=== PATIENT | female | born 1975 ===

== ENCOUNTER 2018-09-19 12:41 | Emergency (ER) | payer OTHER ==
[2018-09-19 13:50] VITALS: RESP 18; TEMP 98.4; BMI 22.6
--- NOTE | 2018-09-19 15:45 | ED PDOC ---
Arrival/HPI - General Chief Complaint: Upper Extremity Problem/Injury Time Seen by Provider: 09/19/18 14:41 Historian: Patient - History of Present Illness Narrative History of Present Illness (Text): 09/19/18 15:15 42 year old female, with no significant past medical history, presents to the Emergency department complaining of right wrist and right shoulder discomfort radiating to her right neck for past year. Patient informs a sharp burning sensation to the area but denies any injury or trauma. Patient denies any other associated somatic complaints. Patient denies any generalized weakness, fevers, chills, headache, dizziness, chest pain, shortness of breath, dyspnea on exertion, cough, abdominal pain, nausea, vomiting, diarrhea, back pain, or any other complaints. PMD Myers Time/Duration: Other (1 year ) Symptom Onset: Gradual Symptom Course: Unchanged Quality: Burning Activities at Onset: Light Context: Home Past Medical History - Provider Review Nursing Documentation Reviewed: Yes - Past History Past History: No Previous - Infectious Disease Hx of Infectious Diseases: None - Tetanus Immunization Tetanus Immunization: Unknown - Reproductive Menopause: No - Psychiatric Hx Depression: No Hx Emotional Abuse: No Hx Physical Abuse: No Hx Substance Use: No - Surgical History Hx Section: Yes - Suicidal Assessment Feels Threatened In Home Enviroment: No Family/Social History - Physician Review Nursing Documentation Reviewed: Yes Family/Social History: Unknown Family HX Hx Alcohol Use: No Hx Substance Use: No Hx Substance Use Treatment: No Allergies/Home Meds Allergies/Adverse Reactions: Allergies No Known Allergies Allergy (Verified 08/09/13 18:46) Review of Systems - Physician Review All systems were reviewed & negative as marked: Yes - Review of Systems Constitutional: absent: Fevers Respiratory: absent: SOB, Cough Cardiovascular: absent: Chest Pain Gastrointestinal: absent: Abdominal Pain, Diarrhea, Nausea, Vomiting Musculoskeletal: Neck Pain, Other (right shoulder and right wrist pain. ). absent: Back Pain Neurological: absent: Headache, Dizziness Psychiatric: absent: Anxiety, Depression Physical Exam Vital Signs Reviewed: Yes Vital Signs Temp Pulse Resp BP Pulse Ox 09/19/18 13:50 98.4 F 60 18 123/82 100 Temperature: Afebrile Blood Pressure: Normal Pulse: Regular Respiratory Rate: Normal Appearance: Positive for: Well-Appearing, Non-Toxic, Comfortable Pain Distress: None Mental Status: Positive for: Alert and Oriented X 3 - Systems Exam Head: Present: Atraumatic, Normocephalic Pupils: Present: PERRL Extroacular Muscles: Present: EOMI Conjunctiva: Present: Normal Mouth: Present: Moist Mucous Membranes Neck: Present: Normal Range of Motion. No: Meningeal Signs, MIDLINE TENDERNESS, Paraspinal Tenderness, Lymphadenopathy Respiratory/Chest: Present: Clear to Auscultation, Good Air Exchange. No: Respiratory Distress, Accessory Muscle Use Cardiovascular: Present: Regular Rate and Rhythm, Normal S1, S2. No: Murmurs Abdomen: No: Tenderness, Distention, Peritoneal Signs Back: Present: Normal Inspection Upper Extremity: Present: Normal Inspection, Normal ROM, NORMAL PULSES, Tenderness (+tenderness to the R shoulder and R wrist), Neurovascularly Intact, Capillary Refill < 2s, Norm 2-Pt Discrimination. No: Cyanosis, Edema, Temperature Abnormalties, Deformity Lower Extremity: Present: Normal Inspection. No: Edema Neurological: Present: GCS=15, CN II-XII Intact, Speech Normal, Motor Func Grossly Intact, Normal Sensory Function Skin: Present: Warm, Dry, Normal Color. No: Rashes Psychiatric: Present: Alert, Oriented x 3, Normal Insight, Normal Concentration Medical Decision Making ED Course and Treatment: 09/19/18 15:15 Impression: 42 year old female presents to the Emergency department complaining of right shoulder, right wrist and right sided neck pain. Plan: -- Toradol -- X-ray of Cervical spine -- X-ray of right shoulder -- X-ray of right wrist -- Reassess and disposition Prior Visits: Notes and results from previous visits were reviewed. Progress Notes: 09/19/18 17:08 XR R shoulder : +calcifications, no fracture or dislocation. XR R wrist : no fracture or dislocation. XR results d/w the patient. Dx tendonitis to the R shoulder and carpal tunnel to R wrist. Shoulder sling and pre-made cock up splint applied to the patient's R shoulder and wrist. Patient is cleared for d/c. Advised to f/u w/ pmd or ortho referral provided in 1-2 days w/o fail. Take medications as prescribed and to return to the ER at any time for any new or worsening symptoms. - RAD Interpretation Radiology Orders: 09/19/18 15:15 CERVICAL SPINE AP & LATERAL [RAD] Stat SHOULDER RIGHT [RAD] Stat WRIST, RIGHT 3 VIEWS [RAD] Stat - Medication Orders Current Medication Orders: Discontinued Medications Ketorolac Tromethamine (Toradol) 60 mg IM STAT STA Stop: 09/19/18 15:16 - PA / [employer] / Resident Statement MD/DO has reviewed & agrees with the documentation as recorded. - Scribe Statement The provider has reviewed the documentation as recorded by the Tabithaibe Aspen Erazo. All medical record entries made by the Scribe were at my direction and personally dictated by me. I have reviewed the chart and agree that the record accurately reflects my personal performance of the history, physical exam, medical decision making, and the department course for this patient. I have also personally directed, reviewed, and agree with the discharge instructions and disposition. Disposition/Present on Arrival - Present on Arrival Any Indicators Present on Arrival: No History of DVT/PE: No History of Uncontrolled Diabetes: No Urinary Catheter: No History of Decub. Ulcer: No History Surgical Site Infection Following: None - Disposition Have Diagnosis and Disposition been Completed?: Yes Diagnosis: Tendonitis, Carpal tunnel syndrome Disposition: HOME/ ROUTINE Disposition Time: 17:00 Patient Plan: Discharge Condition: STABLE Discharge Instructions (ExitCare): Tendonitis, Carpal Tunnel Syndrome (DC) Print Language: SWAZI Additional Instructions: Thank you for letting us take care of you today. You were treated for R shoulder tendonitis, carpal tunnel syndrome R wrist. The emergency medical care you received today was directed at your acute symptoms. If you were prescribed any medication, please fill it and take as directed. It may take several days for your symptoms to resolve. Return to the Emergency Department if your symptoms worsen, do not improve, or if you have any other problems. Please contact your doctor in 2 days for re-evaluation and follow up / or call one of the physicians/clinics you have been referred to that are listed on the Patient Visit Information form that is included in your discharge packet. Bring any paperwork you were given at discharge with you along with any medications you are taking to your follow up visit. Our treatment cannot replace ongoing medical care by a primary care provider (PCP) outside of the emergency department. Thank you for allowing the [facility] team to be part of your care today. If you had an X-Ray : A Radiologist will review the ED reading if any change in treatment is needed we will contact you. Prescriptions: Naproxen 500 mg PO BID #30 tab Referrals: [facility] [Outside] - Follow up with primary Forms: [employer] (Nepali), WORK NOTE
[2018-09-19 18:09] VITALS: BP 122/76; PULSE 80; O2SAT 99
--- NOTE | 2018-09-20 08:48 | RAD ---
Date of service: 09/19/2018 PROCEDURE: Cervical Spine Radiographs. HISTORY: Pain. COMPARISON: None available. FINDINGS: BONES: Alignment maintained. No fracture. Dens Intact. DISC SPACES: Normal. SOFT TISSUES: Normal. No prevertebral soft tissue swelling. OTHER FINDINGS: None. IMPRESSION: Normal cervical spine radiographs
--- NOTE | 2018-09-20 09:03 | RAD ---
Date of service: 09/19/2018 PROCEDURE: Right Wrist Radiographs. HISTORY: pain COMPARISON: None. FINDINGS: BONES: Normal. No fracture. JOINTS: Normal. No dislocation. SOFT TISSUES: Normal. OTHER FINDINGS: None. IMPRESSION: Normal right wrist radiographs.
--- NOTE | 2018-09-20 09:03 | RAD ---
Date of service: 09/19/2018 PROCEDURE: Radiographs of the Right Shoulder HISTORY: pain COMPARISON: No prior. FINDINGS: BONES: Normal. No fracture. JOINTS: Normal. Glenohumeral and acromioclavicular joints preserved. No osteoarthritis. SOFT TISSUES: There is a 13 mm calcification adjacent to the greater tuberosity. Findings consistent with calcific tendinitis OTHER FINDINGS: None. IMPRESSION: Calcific tendinitis
== END 2018-09-19 17:30 | disposition home or self-care (01) ==
LOC: ED 12:41
DX: G56.01 Carpal tunnel syndrome, right upper limb (principal); M77.9 Enthesopathy, unspecified
CPT/HCPCS: 72040; 73030; 73110; 96372; 99282; J1885